=== PATIENT | female | born 1995 | race Caucasian/White ===

== ENCOUNTER 2019-06-25 23:35 | Emergency (ER) | payer MEDICAID ==
--- NOTE | 2019-06-26 00:35 | EDM.PDOC ---
ED HPI GENERAL MEDICAL PROBLEM - General Chief Complaint: RIDING DOUBLE Problem Stated Complaint: 14 WEEK BLEEDING Time Seen by Provider: 06/26/19 00:15 Source of Information: Reports: Patient History Limitations: Reports: Other (didn't know all of her past hx) - History of Present Illness INITIAL COMMENTS - FREE TEXT/NARRATIVE: 23 [facility]. Has had other pregnancies to term, both at [place]. Doesn't know her blood type. heart tones were not heard on last visit. Her last ultrasound was fine. Onset: Sudden Duration: Minutes:, Resolved Prior to Arrival Location: Reports: Pelvis (vaginal) Quality: Reports: Other (no pain) Severity: Mild Improves with: Reports: Other (time) Worsens with: Reports: Other (unknown) Context: Reports: Other (See HPI) Associated Symptoms: Reports: No Other Symptoms Treatments CYLINDER FILLER: Reports: Other (see below) (none) denies Pain Score (Numeric/FACES): 0 - Related Data Allergies Allergy/AdvReac Type Severity Reaction Status Date / Time No Known Allergies Allergy Verified 06/26/19 00:02 Home Meds: Home Meds Pnv No.103/Folic/Om3s/Fish Oil [ Gummies] 1 each PO DAILY 06/26/19 [ History] Past Medical History RIDING DOUBLE History: Reports: , Spontaneous Musculoskeletal History: Reports: Fracture - Infectious Disease History Infectious Disease History: Reports: Chicken Pox Social & Family History - Tobacco Use Smoking Status *Q: Never Smoker Second Hand Smoke Exposure: No - Caffeine Use Caffeine Use: Reports: None - Recreational Drug Use Recreational Drug Use: No ED ROS GENERAL - Review of Systems Review Of Systems: See Below Constitutional: Reports: No Symptoms Cardiovascular: Reports: No Symptoms : Reports: Other (vaginal bleeding) Skin: Reports: No Symptoms ED EXAM - Physical Exam Exam: See Below Exam Limited By: No Limitations General Appearance: Alert, WD/WN, No Apparent Distress Eye Exam: Bilateral Eye: Normal Inspection Ears: Normal External Exam, Normal Canal, Hearing Grossly Normal, Normal TMs Nose: Normal Inspection, No Blood Throat/Mouth: Normal Inspection, Normal Lips, Normal Oropharynx, Normal Voice, No Airway Compromise Head: Atraumatic, Normocephalic Neck: Normal Inspection Respiratory/Chest: No Respiratory Distress, Lungs Clear, Normal Breath Sounds, No Accessory Muscle Use Cardiovascular: Regular Rate, Rhythm, No Edema Heart Tones: Not Beauregard Movement: Not Appreciated Extremities: Normal Inspection, Normal Range of Motion, Non-Tender, No Pedal Edema Neurological: Alert, Oriented, CN II-XII Intact, Normal Cognition, No Motor/ Sensory Deficits Psychiatric: Normal Affect, Normal Mood Skin Exam: Warm, Dry, Intact, Normal Color, No Rash Course - Vital Signs Text/Narrative:: Contacted [facility], her Rh type is positive(+) Last Recorded V/S: Last Vital Signs Temp 36.6 C 06/26/19 00:08 Pulse 87 06/26/19 00:08 Resp 16 06/26/19 00:08 BP 126/72 06/26/19 00:08 Pulse Ox 100 06/26/19 00:08 - Orders/Labs/Meds Labs: Laboratory Tests 06/26/19 06/26/19 Range/Units 00:30 00:30 Hgb 12.7 (12.0-15.0) g/dL HCG, Quant [id number] H (0-6) mIU/mL Departure - Departure Time of Disposition: 01:53 Disposition: Home, Self-Care 01 Condition: Fair Clinical Impression: Second trimester bleeding - Discharge Information *PRESCRIPTION DRUG MONITORING PROGRAM REVIEWED*: No *COPY OF PRESCRIPTION DRUG MONITORING REPORT IN PATIENT MICHAEL: No Referrals: PCP,None [Primary Care Provider] - Forms: ED Department Discharge Additional Instructions: Acetaminophen as needed for pain relief. Drink ample fluids. Rest. Recheck with your provider tomorrow. Sepsis Event Note - Evaluation Sepsis Screening Result: No Definite Risk - Focused Exam Vital Signs: Vital Signs Temp Pulse Resp BP Pulse Ox 06/26/19 00:08 36.6 C 87 16 126/72 100 Date Exam was Performed: 06/26/19 Time Exam was Performed: 01:52
== END 2019-06-26 02:08 | disposition home or self-care (01) ==
LOC: JP.ED 23:35
DX: O46.92 Antepartum hemorrhage, unspecified, second trimester (principal); Z3A.14 14 weeks gestation of pregnancy
CPT/HCPCS: 36415; 84702; 85018; 99283; 99284

== ENCOUNTER 2020-06-28 13:31 | Emergency (ER) | payer OTHER, MEDICAID ==
[2020-06-28] MEDS ORDERED: Tetracaine HCl/PF 0.5% 4 ML Bottle EYEBOTH ONE (15:25)
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
== END 2020-06-28 16:08 | disposition home or self-care (01) ==
LOC: JP.ED 13:31
DX: S05.91XA Unspecified injury of right eye and orbit, initial encounter (principal); X58.XXXA Exposure to other specified factors, initial encounter; Y99.0 Civilian activity done for income or pay
CPT/HCPCS: 99283

== ENCOUNTER 2021-12-20 09:06 | Emergency (ER) | payer MEDICAID ==
[2021-12-20] MEDS ORDERED: Acetaminophen 325 MG Tab PO ONE (10:24)
== END 2021-12-20 12:24 | disposition home or self-care (01) ==
LOC: JP.ED 09:06
DX: N61.0 Mastitis without abscess (principal); Z79.899 Other long term (current) drug therapy
CPT/HCPCS: 36415; 83605; 84145; 85025; 99282; 99283; A9270